=== PATIENT | female | born 1965 | race Caucasian/White ===

== ENCOUNTER 2024-09-05 14:43 | Emergency (ER) | payer MEDICAID, OTHER ==
[~2024-09-05] VITALS: Ht 152.4 cm; Wt 60.7 kg
[2024-09-05 14:51] VITALS: BP_SYST 110; PULSE 65; RESP 16; TEMP 98.2; O2SAT 100
[2024-09-05] MEDS: LIDOCAINE HCL/PF 1% 10 MG/ML 5ML VIAL INFIL ONE (18:47)
== END 2024-09-05 19:50 | disposition home or self-care (01) ==
LOC: ER 15:09
DX: S61.412A Laceration without foreign body of left hand, initial encounter (principal); E11.9 Type 2 diabetes mellitus without complications; I10 Essential (primary) hypertension; W26.0XXA Contact with knife, initial encounter; Y93.89 Activity, other specified; Y92.89 Other specified places as the place of occurrence of the external cause; Y99.8 Other external cause status
CPT/HCPCS: 99282; 82962; 12001; J3490

== ENCOUNTER 2024-09-11 13:36 | Emergency (ER) | payer MEDICAID ==
[~2024-09-11] VITALS: Ht 152.4 cm; Wt 60.7 kg
[2024-09-11 13:39] VITALS: BP 126/85; PULSE 84; RESP 16; TEMP 98.2; O2SAT 100
== END 2024-09-11 17:05 | disposition home or self-care (01) ==
LOC: ER 13:49
DX: S61.412D Laceration without foreign body of left hand, subsequent encounter (principal); I10 Essential (primary) hypertension; E11.9 Type 2 diabetes mellitus without complications; Z48.02 Encounter for removal of sutures; X58.XXXD Exposure to other specified factors, subsequent encounter
CPT/HCPCS: 99281